=== PATIENT | male | born 2000 | race Caucasian/White ===

== ENCOUNTER → 2019-09-14 13:02 | Outpatient (CLI) | payer BC, SELFPAY ==
--- NOTE | 2019-09-14 13:15 | XR_ITS ---
PROCEDURE: XR HAND RT MIN 3V CLINICAL INDICATION: FELL FROM HORSE Posttraumatic pain COMPARISON: No exams were available for comparison FINDINGS: No fracture or dislocation. No lytic or blastic change. There is normal mineralization. The joint spaces are well-preserved. No significant degenerative/arthritic changes. No erosive changes evident. Other findings:None. IMPRESSION: No acute findings. Dictated by: Yevgeniy James MD 09/14/2019 14:02 Electronically signed by Yevgeniy James MD in [place] 09/14/2019 14:02
--- NOTE | 2019-09-14 13:15 | XR_ITS ---
PROCEDURE: XR HAND LT MIN 3V CLINICAL INDICATION: FELL FROM HORSE Posttraumatic pain COMPARISON: No exams were available for comparison FINDINGS: No fracture or dislocation. No lytic or blastic change. There is normal mineralization. The joint spaces are well-preserved. No significant degenerative/arthritic changes. No erosive changes evident. Other findings:None. IMPRESSION: No acute findings. Dictated by: Yevgeniy James MD 09/14/2019 14:25 Electronically signed by Yevgeniy James MD in [facility] 09/14/2019 14:25
--- NOTE | 2019-09-14 13:15 | XR_ITS ---
PROCEDURE: XR WRIST RT MIN 3V CLINICAL INDICATION: FELL FROM HORSE Posttraumatic pain COMPARISON: XR HAND RT MIN 3V from 09/14/2019 FINDINGS: There is a transverse lucency involving the mid aspect of the navicular best seen on the AP view suspicious for nondisplaced fracture. Otherwise negative. IMPRESSION: Nondisplaced fracture through the mid aspect of the navicular Dictated by: Yevgeniy James MD 09/14/2019 14:01 Electronically signed by Yevgeniy James MD in [facility] 09/14/2019 14:01
--- NOTE | 2019-09-14 13:15 | XR_ITS ---
PROCEDURE: XR WRIST LT MIN 3V CLINICAL INDICATION: FELL FROM HORSE Posttraumatic pain COMPARISON: No exams were available for comparison FINDINGS: No fracture, dislocation, lytic change, or blastic change evident. No significant degenerative change IMPRESSION: No acute findings. Dictated by: Yevgeniy James MD 09/14/2019 14:24 Electronically signed by Yevgeniy James MD in [facility] 09/14/2019 14:24
== END ==
PROVIDERS: PCP Nurse Practitioner Family; Referring Provider Nurse Practitioner Family; Visit Provider Nurse Practitioner Family
DX: M25.531 Pain in right wrist (principal); M79.641 Pain in right hand; M79.642 Pain in left hand; M25.532 Pain in left wrist; V80.010A Animal-rider injured by fall from or being thrown from horse in noncollision accident, initial encounter
CPT/HCPCS: 73110; 73130

== ENCOUNTER → 2019-09-19 08:38 | Outpatient (CLI) | payer BC, SELFPAY ==
--- NOTE | 2019-09-19 08:52 | MR_ITS ---
PROCEDURE: MR WRIST RT WO CON CLINICAL INDICATION: evaluate for a scaphoid fracture Wrist pain following injury, posttraumatic pain COMPARISON: XR WRIST RT MIN 3V from 09/14/2019 XR WRIST LT MIN 3V from 09/14/2019 TECHNIQUE: Routine multiplanar multi echo sequences are performed without gadolinium enhancement. FINDINGS: There is a transverse fracture through the mid aspect of the scaphoid. This is nondisplaced. There is a mild amount of bone marrow edema in this region consistent with an acute fracture. Small amount of fluid is present at the radiocarpal joint at the region of the scaphoid. The scaphoid lunate ligament appears intact without evidence of widening of the scapholunate space. No other fractures are evident. A lobular area of abnormal signal intensity is present along the Cristian aspect of the wrist proximal to the pisiform. This is isointense on T1 and hyperintense on T2 measuring approximately 1.4 cm. An additional area with similar signal intensity is present along the distal aspect of the pisiform which measures 8 mm IMPRESSION: 1. Nondisplaced transverse acute fracture of the scaphoid with bone marrow edema and a small amount of fluid at the radial scaphoid joint 2. The 2 lobular fluid collections at the piece of form region possibly due to ganglion cyst versus bursal fluid collections Dictated by: Yevgeniy James MD 09/20/2019 10:27 Electronically signed by Yevgeniy James MD in [facility] 09/20/2019 10:27
== END ==
PROVIDERS: PCP Internal Medicine Adolescent Medicine; Visit Provider Orthopaedic Surgery
DX: M25.531 Pain in right wrist (principal)
CPT/HCPCS: 73221

== ENCOUNTER → 2019-10-19 08:50 | Outpatient (CLI) | payer BC, SELFPAY ==
--- NOTE | 2019-10-19 08:58 | XR_ITS ---
PROCEDURE: XR WRIST RT MIN 3V CLINICAL INDICATION: scaphoid injury Follow-up fracture COMPARISON: XR WRIST RT MIN 3V from 09/14/2019 XR WRIST LT MIN 3V from 09/14/2019 FINDINGS: Transverse fracture once again noted involving the waist of the scaphoid. The fracture line is somewhat more apparent which may be due to bony resorption from hyperemia. No other significant anomalies are evident. IMPRESSION: Nondisplaced scaphoid fracture with the fracture line slightly more apparent Dictated by: Yevgeniy James MD 10/19/2019 13:15 Electronically signed by Yevgeniy James MD in [facility] 10/19/2019 13:15
--- NOTE | 2019-10-19 09:55 | CT_ITS ---
PROCEDURE: CT WRIST RT WO CON CLINICAL HISTORY: scaphoid injury higher Scaphoid fracture * COMPARISON: MR WRIST RT WO CON from 09/19/2019 TECHNIQUE: Axial images obtained with sagittal and coronal reformats. All CT scans at the facility use one or more dose reduction, viz: automated exposure control, ma/kV adjustment per patient size (including targeted exams where dose is matched to indication, i.e. head), or iterative reconstruction technique. FINDINGS: There is a nondisplaced transverse fracture through the waist of the scaphoid. There is very slight increased density involving the proximal aspect of the proximal pole. This could could be due to osteosclerosis seen with early avascular necrosis. No other fractures are evident. Joint spaces are well preserved. No other significant anomalies are evident. IMPRESSION: Nondisplaced fracture involves the waist of the scaphoid. There is some slight sclerosis of the proximal pole which could be due to early avascular necrosis Dictated by: Yevgeniy James MD 10/19/2019 17:16 Electronically signed by Yevgeniy James MD in [place] 10/19/2019 17:16
== END ==
PROVIDERS: PCP Internal Medicine Adolescent Medicine; Visit Provider Orthopaedic Surgery
DX: S62.001A Unspecified fracture of navicular [scaphoid] bone of right wrist, initial encounter for closed fracture (principal); S63.502A Unspecified sprain of left wrist, initial encounter
CPT/HCPCS: 73110; 73200

== ENCOUNTER 2020-10-01 16:29 | Emergency (ER) | payer BC, SELFPAY ==
[2020-10-01 16:49] VITALS: BP 144/84; PULSE 98; RESP 16; TEMP 37.3; O2SAT 98; BMI 36.3
--- NOTE | 2020-10-01 16:57 | HMH.EDUTC ---
[facility] [place] Clinical Impression: Exposure to COVID-19 virus Disposition: Home, Self-Care Condition on Discharge: Good Instructions: Preventing the Spread of Coronavirus Discharge Instructions Additional Instructions: Drink plenty of fluids. Take tylenol for pain or fever. Return if you begin to have difficulty breathing. Follow up with your regular doctor. GO TO THE ER FOR ANY WORSENING SYMPTOMS Referrals: Jad Gomez MD [Primary Care Provider] - Time of Disposition: 17:01 Medical Decision Making - Medical Records Medical records reviewed: No: I reviewed the patient's medical records. - David Inquiry Pt receiving controlled substance: No Vital Signs: 10/01/20 16:49 10/01/20 17:03 Temperature 99.2 F 99 F Temperature Source Oral Pulse Rate 87 Pulse Rate [Right] 98 H Respiratory Rate 16 16 Blood Pressure 136/81 Blood Pressure [Right Arm] 144/84 H Blood Pressure Mean [Right Arm] 104 Blood Pressure Source [Right Arm] Automatic Cuff Blood Pressure Position [Right Arm] Sitting 02 Sat by Pulse Oximetry 98 Orders (Tests/Meds): ORDERS Category Date Time Status Covid-19 Nasal PCR ([facility]) Routine Lab 10/01/20 16:40 Received [facility] [place]PI - General Stated complaint: covid test Time Seen by Provider: 10/01/20 16:55 Mode of Arrival: Ambulatory Source of Information: Patient Limitations: No Limitations Description of Symptoms (Recalled from Triage Doc. by RN): pt c/o cough, MARTINEZ, and sore throat. pt wants a covid test. he lives with someone that was dx positive for covid two weeks ago. HEENT Symptoms (Recalled from RN notes): Yes (MARTINEZ and sore throat) Resp Symptoms (Recalled from RN notes): Yes (cough) Skin Symptoms (Recalled from RN notes): No MS Symptoms (Recalled from RN notes): No Functional Status (Recalled from RN notes): na - History of Present Illness Provider Complaint: He states that he has been exposed to covid-19 by a family member. He denies any symptoms so far. - Related Data Home Medications Medication Instructions Recorded Confirmed No Known Home Medications 09/18/19 10/19/19 Allergies Allergy/AdvReac Type Severity Reaction Status Date / Time No Known Allergies Allergy Verified 10/01/20 16:51 - Worker's Comp Is this a Worker's Comp case?: No [facility] History - Hepatitis A Screen Drug use history?: No High risk sexual behaviors?: No History of sexually transmitted infection?: No Currently employed?: No Childcare worker?: No Do you have indoor plumbing?: Yes Do you have electricity?: Yes Attestation statement:: This patient has been screened for Hepatitis A risk factors. I have reviewed the patient's past medical history: Yes Other Surgeries: Yes: No Previous Surgery - Social History Smoking Status: Never smoker Occupational Status: employed Family Hx:: No significant family history ROS Obtained: Yes All systems reviewed & no additional complaints - Constitutional Constitutional: Reports system reviewed and no additional complaints, except as docu - Eyes Eyes: Reports system reviewed and no additional complaints, except as docu - ENT Ears, Nose, Mouth, and Throat: Reports system reviewed and no additional complaints, except as docu - Cardiovascular Cardiovascular: Reports system reviewed and no additional complaints, except as docu - Respiratory Respiratory: Reports system reviewed and no additional complaints, except as docu - Gastrointestinal Gastrointestingal: Reports: system reviewed and no additional complaints, except as docu Physical Exam - General General appearance: alert, in no apparent distress - Head Head exam: atraumatic, normocephalic, normal inspection - Eye Eye exam: Present: normal appearance, PERRL, EOMI - ENT ENT exam: Present: normal exam, normal oropharynx, mucous membranes moist, TM's normal bilaterally, normal external ear exam - Neck Neck exam: Present: normal inspection, full
[2020-10-01 17:03] VITALS: BP 136/81; PULSE 87; RESP 16; TEMP 37.2
--- NOTE | 2020-10-02 11:58 | PC.NURSE ---
PATIENT NOTIFIED OF POSITIVE COVID TEST AT THIS TIME
== END 2020-10-01 17:04 | disposition home or self-care (01) ==
PROVIDERS: Emergency Provider Nurse Practitioner Family; PCP Internal Medicine Adolescent Medicine
DX: U07.1 COVID-19 (principal)
CPT/HCPCS: 99202; G0463; U0003